=== PATIENT | female | born 2000 ===

== ENCOUNTER 2022-06-28 04:09 | Emergency (ER) | payer SELFPAY ==
--- NOTE | 2022-06-28 09:05 | Emergency Department Report ---
HPI - General Chief Complaint: Anxiety Time Seen by Provider: 06/28/22 08:35 - HPI HPI: Reassessment 1 The patient is a 22-year-old female presenting with a chief complaint of "I think someone gave me drugs." Patient states she smoked a cigarette yesterday and after which she became paranoid. Patient states she does not know there is methamphetamines or crack inside the cigarette. Patient mitts to methamphetamine use before in the past. Patient states she does have auditory hallucinations of voices arguing but denies suicidal or homicidal ideation ED Past Medical Hx - Past Medical History Additional medical history: Eczema - Surgical History Past Surgical History?: No - Family History Family history: no significant - Social History Smoking Status: Current Some Day Smoker Substance Use Type: Methamphetamines (Has used in the past) ED Review of Systems ROS: Stated complaint: MENTAL HEALTH Other details as noted in HPI Constitutional: no symptoms reported Eyes: denies: eye pain ENT: denies: throat pain Respiratory: no symptoms reported Cardiovascular: denies: chest pain Endocrine: no symptoms reported Gastrointestinal: denies: abdominal pain Genitourinary: denies: dysuria Musculoskeletal: denies: back pain Psychiatric: auditory hallucinations. denies: homicidal thoughts, suicidal thoughts Physical Exam - Physical Exam Physical Exam: GENERAL: The patient is well-developed well-nourished female sitting in chair not appearing to be in acute distress. [] HEENT: Normocephalic. Atraumatic. Extraocular motions are intact. Patient has moist mucous membranes. NECK: Supple. Trachea midline CHEST/LUNGS: Clear to auscultation. There is no respiratory distress noted. HEART/CARDIOVASCULAR: Regular. There is no tachycardia. There is no gallop rub or murmur. ABDOMEN: Abdomen is soft, nontender. Patient has normal bowel sounds. There is no abdominal distention. SKIN: There is no edema. There is no diaphoresis. NEURO: The patient is awake, alert, and oriented. The patient is cooperative. The patient has no focal neurologic deficits. The patient has normal speech. GCS 15 MUSCULOSKELETAL: There is no evidence of acute injury. ED Medical Decision Making - Lab Data Result diagrams: 06/28/22 09:42 06/28/22 09:42 Laboratory Tests 06/28/22 06/28/22 06/28/22 09:42 09:42 09:42 WBC 6.1 RBC 4.55 Hgb 13.0 Hct 38.8 MCV 85 MCH 29 MCHC 34 RDW 14.3 Plt Count 224 Lymph % (Auto) 29.2 Evans % (Auto) 6.7 Eos % (Auto) 2.8 Baso % (Auto) 0.2 Lymph # (Auto) 1.8 Evans # (Auto) 0.4 Eos # (Auto) 0.2 Baso # (Auto) 0.0 Seg Neutrophils % 61.1 Seg Neutrophils # 3.7 Sodium 144 Potassium 3.8 Chloride 107.5 H Carbon Dioxide 24 Anion Gap 16 BUN 8 Creatinine 0.5 L Estimated GFR > 60 BUN/Creatinine Ratio 16 Glucose 99 Calcium 9.6 TSH HCG, Qual Salicylates < 0.3 L Acetaminophen Plasma/Serum Alcohol 06/28/22 06/28/22 06/28/22 09:42 09:42 09:42 WBC RBC Hgb Hct MCV MCH MCHC RDW Plt Count Lymph % (Auto) Evans % (Auto) Eos % (Auto) Baso % (Auto) Lymph # (Auto) Evans # (Auto) Eos # (Auto) Baso # (Auto) Seg Neutrophils % Seg Neutrophils # Sodium Potassium Chloride Carbon Dioxide Anion Gap BUN Creatinine Estimated GFR BUN/Creatinine Ratio Glucose Calcium TSH 1.380 HCG, Qual Negative Salicylates Acetaminophen 5.0 L Plasma/Serum Alcohol 06/28/22 09:42 WBC RBC Hgb Hct MCV MCH MCHC RDW Plt Count Lymph % (Auto) Evans % (Auto) Eos % (Auto) Baso % (Auto) Lymph # (Auto) Evans # (Auto) Eos # (Auto) Baso # (Auto) Seg Neutrophils % Seg Neutrophils # Sodium Potassium Chloride Carbon Dioxide Anion Gap BUN Creatinine Estimated GFR BUN/Creatinine Ratio Glucose Calcium TSH HCG, Qual Salicylates Acetaminophen Plasma/Serum Alcohol < 0.01 - Differential Diagnosis Substance abuse, paranoia Critical care attestation.: If time is entered above; I have spent that time in minutes in the direct care of this critically ill patient, excluding procedure time. ED Disposition Clinical Impression: Substance abuse, Anxiety Disposition: 01 HOME / SELF CARE / HOMELESS Is pt being admited?: No Does the pt Need Aspirin: No Condition: Stable Instructions: Substance Use Disorder and Mental Illness, Managing Anxiety, Adult Additional Instructions: Return to the emergency department should you develop worsening symptoms, inability to tolerate food or liquids, high fever or any other concerns Referrals: CARBUCCIA,SOURAV, MD [Primary Care Provider] - 3-5 Days Time of Disposition: 13:33
[2022-06-28 10:16] LABS: Basophils % (Auto) 0.2 % (0.0-1.8); Eosinophils # (Auto) 0.2 K/mm3 (0.0-0.4); Eosinophils % (Auto) 2.8 % (0.0-4.3); Hematocrit 38.8 % (30.3-42.9); Lymphocytes # (Auto) 1.8 K/mm3 (1.2-5.4); Lymphocytes % (Auto) 29.2 % (13.4-35.0); Mean Corpuscular HGB Conc 34 % (30-34); Mean Corpuscular Volume 85 fl (79-97); Monocytes # (Auto) 0.4 K/mm3 (0.0-0.8); Monocytes % (Auto) 6.7 % (0.0-7.3); Platelet Count 224 K/mm3 (140-440); Red Blood Count 4.55 M/mm3 (3.65-5.03); Red Cell Distribution Width 14.3 % (13.2-15.2)
[2022-06-28 10:33] LABS: Blood Urea Nitrogen 8 mg/dL (7-17); Calcium 9.6 mg/dL (8.4-10.2); Hemolysis Index 4
[2022-06-28 10:41] LABS: BUN/Creatinine Ratio 16
--- NOTE | 2022-06-28 12:47 | Consultation ---
History of Present Illness - Reason for Consult Consult date: 06/28/22 Reason for consult: halluinations - History of Present Psychiatric Illness The patient was seen today. She is sleeping and difficult to arouse. She is led to a room for privacy. The patient is fidgety and having to be asked the questions several times. She doesn't seem to be upfront with certain questions. The patient says she was brought by police officers for being in the street. The patient says she was having bad hallucinations, she says "but I feel a lot better now." She says she was hearing a lot of noises. The patient initially denies this happening in the past. The patient doesn't directly answer the question about drug use. She pauses and says "I don't know, no, no drugs." The patient later says "but I feel like I did drugs." I ask her again had she ever had hallucinations before, she replies "yea, it's what you said, maybe from drugs." She denies SI/HI. She says she is homeless. The patient says "my baby father abandoned me and my baby." She says "but the baby is safe and being taken care of." The patient says she has a history of Bipolar and takes zyprexa. She says she is compliant. REVIEW OF SYSTEMS Constitutional: Negative for weight loss ENT: Negative for stridor Respiratory: Negative for cough or hemoptysis All other systems reviewed and are negative MENTAL STATUS EXAMINATION General Appearance and Behavior: Age appropriate, good hygiene, cooperative, fidgety, drowsy Cooperation: cooperative Psychomotor Behavior: Psychomotor normal, Mood: better Affect and affective range: congruent with stated mood Thought Process: goal directed Thought Content: hallucinations Speech: normal rate and volume Suicidal Ideation: Denies Homicidal Ideation: Denies Hallucinations: auditory Delusions: None elicited Impulse Control: Limited Insight and Judgment: Limited Memory: Limited Attention: Distracted Orientation: A/o x 3 Assessment and Plan (1) Substance Use Disorder Treatment Plan No scripts given at this time Continue previously prescribed outpatient meds Risks, benefits and alternatives of medications discussed with the patient, questions answered and consent obtained from patient. PSYCHOTHERAPY: Supportive psychotherapy provided MEDICAL: Per primary team DELIRIUM PRECAUTIONS: Please re-orient patient frequently, keep lights on during the day, and minimize benzodiazepines and opiates as these medications could worsen patient's confusion. 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 Thank you for the consult. Please contact with any questions and/or concerns Case discussed with Dr. Lee who agrees with current disposition Medications and Allergies Allergies Allergy/AdvReac Type Severity Reaction Status Date / Time No Known Allergies Allergy Verified 06/28/22 05:41 Results Result Diagrams: 06/28/22 09:42 06/28/22 09:42 Abnormal lab results 06/28/22 06/28/22 06/28/22 Range/Units 09:42 09:42 09:42 Chloride 107.5 H (98-107) mmol/L Creatinine 0.5 L (0.6-1.2) mg/dL Salicylates < 0.3 L (2.8-20.0) mg/dL Acetaminophen 5.0 L (10.0-30.0) ug/mL All other labs normal.
== END 2022-06-28 13:39 | disposition home or self-care (01) ==
LOC: ED 04:09
DX: F41.9 Anxiety disorder, unspecified (principal); F19.10 Other psychoactive substance abuse, uncomplicated; F60.0 Paranoid personality disorder; F17.200 Nicotine dependence, unspecified, uncomplicated; F15.90 Other stimulant use, unspecified, uncomplicated; Z79.899 Other long term (current) drug therapy
CPT/HCPCS: 36415; 80048; 80320; 84443; 84703; 85025; 99283; G0480